=== PATIENT | male | born 1975 | race Caucasian/White ===

== ENCOUNTER → 2017-06-07 | Outpatient (CLI) | payer OTHER ==
--- NOTE | ~2017-06-07 | CT57 ---
[facility] A Service of [facility] RADIOLOGY TEXT RESULTS PATIENT: VICTOR MANUEL WATSON LOCATION: [facility] : [birth year] UNIT #: [id number] AGE: [address]: Naa Hays MD SEX: M ORDER DR: [id number] [facility]. [place], [place] [address] [id number] O MR#: [id number] Acc #: [id number] NAME: VICTOR MANUEL WATSON : 1975 SEX: M STUDY DATE/TIME: 06/07/2017 13:16 UNIT: [facility] ROOM: STUDY DESCRIPTION: CT Chest Wo Cont Attending Physician: Naa Hays M.D. Referring Physician: Naa Hays M.D. Ordering Physician: Naa Hays M.D. Primary Care Physician: Naa Hays M.D. MEDICAL IMAGING REPORT This report is preliminary unless electronic signature is present EXAM CT chest INDICTIONS Sternal fracture. Picking up a trash can and the trash can hit him in the chest. Popping sensation at the sternum since the injury. TECHNIQUE CT of the chest without contrast. Coronal and sagittal reconstructions were obtained. Field images were obtained through the sternum. The CT exam was performed with one or more of the following radiation dose reduction techniques: automatic exposure control, adjustment of mA and/or kV according to patient size, and iterative reconstruction. COMPARISON: None available. FINDINGS No sternal trauma is identified. No fractures. Costicartilage junction appears normal. Thoracic aorta is normal in caliber. No enlarged mediastinal or hilar lymph nodes. No pericardial or pleural effusion. The lungs are clear. Central airways are patent. Limited images of the upper abdomen were obtained. There are no acute findings. Reconstructed images of the thoracic spine are within normal limits. IMPRESSION 1. No acute trauma in the chest. Specifically, no evidence of a sternal fracture. [facility] A Service [facility] RADIOLOGY TEXT RESULTS PATIENT: VICTOR MANUEL WATSON LOCATION: [facility] : [birth year] UNIT #: [id number] AGE: [address]: Naa Hays MD SEX: M ORDER DR: Dictated by... Jeff Reese M.D. THIS IS AN ELECTRONICALLY VERIFIED REPORT Jeff Reese M.D. at 06/09/2017 2:52 PM RPC/swathi TD: 06/09/2017 07:35 JOB #: [id number] MEDICAL IMAGING REPORT Page 1 of 1 COPY
== END | disposition home or self-care (01) ==
LOC: CCAT 12:55
DX: S22.20XD Unspecified fracture of sternum, subsequent encounter for fracture with routine healing (principal)
CPT/HCPCS: 71250